=== PATIENT | female | born 1960 | race American Indian/Alaskan Native ===

== ENCOUNTER 2017-06-05 12:16 | Inpatient (IN) | payer MEDICAID ==
--- NOTE | 2017-06-05 20:35 | History and Physical Report ---
History of Present Illness Date of examination: 06/05/17 Date of admission: 06/05/17 14:01 Chief complaint: CC Jarred per her [employer] Manager History of present illness: 57 y/o female ent for JARRED by Dr Jiang as ARF/JARRED.Bun/cr in office 52/1.94 which has deteriorated from 24/06 from 4 months prior. Also c/o fatigue and SOB. No exacerbating or relieving factors Past History Past Medical History: hypertension Social history: lives with family, smoking (Former smoker), full code Family history: hypertension Medications and Allergies Allergies Allergy/AdvReac Type Severity Reaction Status Date / Time ibuprofen Allergy Swelling Unverified 06/05/17 14:02 lisinopril Allergy Swelling Unverified 06/05/17 14:02 Home Medications Medication Instructions Recorded Confirmed Last Taken Type Aspirin [Aspirin BABY CHEW TAB] 81 mg PO QDAY 06/05/17 06/05/17 06/04/17 10:00 History AtorvaSTATin [Lipitor] 40 mg PO QHS 06/05/17 06/05/17 06/04/17 20:00 History Cetirizine HCl [Zyrtec] 10 mg PO DAILY 06/05/17 06/05/17 06/04/17 10:00 History Cholecalciferol (Vitamin D3) 2,000 units PO DAILY 06/05/17 06/05/17 06/04/17 10: 00 History [Vitamin D3] Folic Acid [Folvite] 1 mg PO QDAY 06/05/17 06/05/17 06/04/17 10:00 History Furosemide [Lasix TAB] 40 mg PO BID 06/05/17 06/05/17 06/04/17 20:00 History Levothyroxine [Synthroid] 75 mcg PO QAM 06/05/17 06/05/17 06/04/17 10:00 History Metoprolol [Lopressor] 25 mg PO BID 06/05/17 06/05/17 06/04/17 20:00 History [place]-3 Fatty Acids/Fish Oil [Eql 1,000 mg PO DAILY 06/05/17 06/05/17 05/28/17 10:00 History [place]-3 Fish Oil 1,000 mg] Pantoprazole [Protonix] 40 mg PO QDAY 06/05/17 06/05/17 06/04/17 10:00 History Potassium Chloride [K-Dur] 20 meq PO QDAY 06/05/17 06/05/17 06/04/17 10:00 History Spironolactone [Aldactone] 25 mg PO QDAY 06/05/17 06/05/17 06/04/17 10:00 History Ubidecarenone [Co Q-10] 200 mg PO DAILY 06/05/17 06/05/17 06/04/17 10:00 History Warfarin [Coumadin] 5 mg PO QDAY 06/05/17 06/05/17 Unknown History Warfarin [Coumadin] 7.5 mg PO QDAY 06/05/17 06/05/17 Unknown History traZODone [Desyrel] 50 mg PO QHS 06/05/17 06/05/17 06/04/17 20:00 History Active Meds: Active Medications Influenza Virus Vaccine Quadrival (Fluarix Quad 4273-9795(36 Mos+) 0.5 ml IM .ONCE ONE Stop: 06/06/17 12:01 Pneumococcal Polyvalent Vaccine (Pneumovax 23) 0.5 ml IM .ONCE ONE Stop: 06/06/17 12:01 Review of Systems All systems: negative Constitutional: fatigue, weakness, no weight loss, no weight gain, no fever, no chills Ears, nose, mouth and throat: no hoarseness, no sore throat, no swelling in mouth Breasts: deferred Cardiovascular: no chest pain, no orthopnea, no palpitations, no rapid/ irregular heart beat Respiratory: no cough, no cough with sputum, no excessive sputum, no hemoptysis Gastrointestinal: no abdominal pain, no nausea, no vomiting, no diarrhea, no constipation Genitourinary Female: no dysuria, no urinary frequency, no urgency Rectal: no pain Musculoskeletal: no neck stiffness, no neck pain, no shooting arm pain, no arm numbness/tingling Integumentary: no rash, no pruritis, no redness, no sores Neurological: no head injury, no transient paralysis, no paralysis, no weakness , no seizures, no syncope Psychiatric: no anxiety, no memory loss, no change in sleep habits, no sleep disturbances Endocrine: no cold intolerance, no heat intolerance, no polyphagia, no excessive thirst Hematologic/Lymphatic: no easy bruising, no easy bleeding Allergic/Immunologic: no urticaria, no allergic rhinitis, no wheezing Exam - Constitutional Vitals: Temp Pulse Resp BP Pulse Ox 98.3 F 87 16 131/80 99 06/05/17 14:51 06/05/17 14:51 06/05/17 14:51 06/05/17 14:51 06/05/17 14:51 General appearance: Present: no acute distress, well-nourished - EENT Eyes: Present: PERRL ENT: hearing intact, clear oral mucosa - Neck Neck: Present: supple, normal ROM - Respiratory Respiratory effort: normal Respiratory: bilateral: CTA - Cardiovascular Heart rate: 70 Rhythm: regular Heart Sounds: Present: S1 & S2. Absent: rub, click - Extremities Extremities: no ischemia, pulses intact, pulses symmetrical, No edema Peripheral Pulses: within normal limits - Abdominal General gastrointestinal: Present: soft, non-tender, non-distended, normal bowel sounds Female genitourinary: Present: normal - Rectal Rectal Exam: deferred - Integumentary Integumentary: Present: clear, warm, dry - Musculoskeletal Musculoskeletal: gait normal, strength equal bilaterally - Psychiatric Psychiatric: appropriate mood/affect, intact judgment & insight - Neurologic Neurologic: CNII-XII intact, moves all extremities - Allied Health Allied health notes reviewed: nursing, case management Results - Labs CBC & Chem 7: 06/06/17 05:50 06/06/17 05:50 Assessment and Plan Advance Directives: Yes (FC) VTE prophylaxis?: Chemical Plan of care discussed with patient/family: Yes - Patient Problems (1) JARRED (acute kidney injury) Current Visit: Yes Status: Acute Plan to address problem: BUN/cr 52/1.94 in office.Now 22/1.0 Cot IV fluids Stop lasix (2) HTN (hypertension) Current Visit: Yes Status: Chronic Qualifiers: Hypertension type: essential hypertension Qualified Code(s): I10 - Essential (primary) hypertension Plan to address problem: Cont Metoprolol and Aldactone (3) CAD (coronary artery disease) Current Visit: Yes Status: Chronic Qualifiers: Coronary Disease-Associated Artery/Lesion type: [place] artery Associated angina: without angina Plan to address problem: On ASA and coumadin (4) Hypothyroidism (acquired) Current Visit: Yes Status: Chronic Plan to address problem: TSH high -16.11 Will increase Synthyroid from 75 mcg to 112 mcg (5) HLD (hyperlipidemia) Current Visit: Yes Status: Chronic Qualifiers: Hyperlipidemia type: mixed hyperlipidemia Qualified Code(s): E78.2 - Mixed hyperlipidemia Plan to address problem: Cont statins (6) Valvular heart disease Current Visit: Yes Status: Chronic Plan to address problem: On coumadin=Therapeutic (7) DVT prophylaxis Current Visit: Yes Status: Acute Plan to address problem: Coumadin therapeutic
[2017-06-05 21:44] LABS: INR 2.11 (0.87-1.13)
[2017-06-05] MEDS ORDERED: LASIX PO SCH (22:00)
[2017-06-05] MEDS: FOLVITE PO SCH (22:25)
[2017-06-05] MEDS: LOPRESSOR PO SCH (22:26)
[2017-06-05] MEDS: BABY ASPIRIN PO SCH (22:26)
[2017-06-05] MEDS: DESYREL PO SCH (22:27)
[2017-06-05] MEDS: K-DUR PO SCH (22:27)
[2017-06-05] MEDS: PROTONIX PO SCH (22:27)
[2017-06-05] MEDS: ALDACTONE PO SCH (22:37)
[2017-06-06 06:31] LABS: Basophils % (Auto) 1.1 % (0.0-1.8); Eosinophils # (Auto) 0.1 K/mm3 (0.0-0.4); Eosinophils % (Auto) 2.1 % (0.0-4.3); Lymphocytes # (Auto) 1.3 K/mm3 (1.2-5.4); Lymphocytes % (Auto) 29.4 % (13.4-35.0); Mean Corpuscular HGB Conc 31 % (30-34); Mean Corpuscular Volume 77 fl (79-97); Monocytes # (Auto) 0.3 K/mm3 (0.0-0.8); Monocytes % (Auto) 7.4 % (0.0-7.3); Platelet Count 192 K/mm3 (140-440); Red Blood Count 3.78 M/mm3 (3.65-5.03)
[2017-06-06 06:32] LABS: Mean Corpuscular Hemoglobin 24 pg (28-32)
[2017-06-06] MEDS ORDERED: SYNTHROID PO SCH ×3 (07:00→10:00)
[2017-06-06 07:17] LABS: BUN/Creatinine Ratio 22; Blood Urea Nitrogen 22 mg/dL (7-17); Hemolysis Index 3
[2017-06-06] MEDS ORDERED: FATTY ACIDS PO SCH (10:00)
[2017-06-06] MEDS ORDERED: LASIX PO SCH (10:00)
[2017-06-06] MEDS ORDERED: OMEGA PO SCH (10:00)
[2017-06-06] MEDS ORDERED: UBIDECARENONE 200 MG PO SCH (10:00)
[2017-06-06] MEDS ORDERED: CHOLECALCIFEROL 2000 UNIT PO SCH (10:00)
[2017-06-06] MEDS ORDERED: FISH OIL PO SCH (10:00)
[2017-06-06] MEDS ORDERED: NON-FORMULARY (Cetirizine Hcl [Zyrtec] 10 MG) PO SCH (10:00)
[2017-06-06] MEDS: FOLVITE PO SCH (10:11)
[2017-06-06] MEDS: ALDACTONE PO SCH (10:11)
[2017-06-06] MEDS: CLARITIN PO SCH (10:11)
[2017-06-06] MEDS: BABY ASPIRIN PO SCH (10:11)
[2017-06-06] MEDS: LOPRESSOR PO SCH ×2 (10:12→23:04)
[2017-06-06] MEDS: FISH OIL PO SCH (10:12)
[2017-06-06] MEDS: PROTONIX PO SCH (10:12)
[2017-06-06] MEDS: VITAMIN D3 PO SCH (10:12)
[2017-06-06] MEDS: K-DUR PO SCH (10:12)
--- NOTE | 2017-06-06 10:59 | Consultation ---
History of Present Illness - Reason for Consult Consult date: 06/06/17 acute renal failure, other (shortness of breath) - History of Present Illness 57-year-old lady who is known to me followed by our group in the office. Patient has a history of hypertension and her labs 4 months ago showed the BUN/ creatinine 17/1 mg/dL. She presented to the office yesterday with complaint of Shortness of breath which has been going on over a couple of months. She also complained of bilateral lower extremity swelling. She also complained of fatigue and could hardly walk more than 10 feet without giving out. She has to sit down due to being fatigued, short of breath and having palpitations. She saw her primary care physician and she increase furosemide to twice daily but her condition was not any better. Labs drawn prior to yesterday's visit showed BUN/creatinine had increased to 52/1.94 mg/dL. She was sent to the hospital for evaluation of the dyspnea and treatment of the acute kidney injury. Patient has not been using NSAIDS and has not been exposed to RadioContrast recently. Of note she is on furosemide 40 mg twice daily spironolactone 25 mg daily. Past History Past Medical History: arthritis, GERD, hypertension, other (Peptic ulcer disease with NSAID-induced gastric ulcer in the past) Past Surgical History: valve replacement (2014) Social history: lives with family (Aniyah with her sister), smoking (Former smoker quit in 2012), full code, other (worked at a [employer] for 26 years till 2011. She is now disabled) Family history: CAD (mother following a heart attack), cancer (father of throat cancer), hypertension Medications and Allergies Allergies Allergy/AdvReac Type Severity Reaction Status Date / Time ibuprofen Allergy Swelling Unverified 06/05/17 14:02 lisinopril Allergy Swelling Unverified 06/05/17 14:02 Home Medications Medication Instructions Recorded Confirmed Last Taken Type Aspirin [Aspirin BABY CHEW TAB] 81 mg PO QDAY 06/05/17 06/05/17 06/04/17 10:00 History AtorvaSTATin [Lipitor] 40 mg PO QHS 06/05/17 06/05/17 06/04/17 20:00 History Cetirizine HCl [Zyrtec] 10 mg PO DAILY 06/05/17 06/05/17 06/04/17 10:00 History Cholecalciferol (Vitamin D3) 2,000 units PO DAILY 06/05/17 06/05/17 06/04/17 10: 00 History [Vitamin D3] Folic Acid [Folvite] 1 mg PO QDAY 06/05/17 06/05/17 06/04/17 10:00 History Furosemide [Lasix TAB] 40 mg PO BID 06/05/17 06/05/17 06/04/17 20:00 History Levothyroxine [Synthroid] 75 mcg PO QAM 06/05/17 06/05/17 06/04/17 10:00 History Metoprolol [Lopressor] 25 mg PO BID 06/05/17 06/05/17 06/04/17 20:00 History [place]-3 Fatty Acids/Fish Oil [Eql 1,000 mg PO DAILY 06/05/17 06/05/17 05/28/17 10:00 History [place]-3 Fish Oil 1,000 mg] Pantoprazole [Protonix] 40 mg PO QDAY 06/05/17 06/05/17 06/04/17 10:00 History Potassium Chloride [K-Dur] 20 meq PO QDAY 06/05/17 06/05/17 06/04/17 10:00 History Spironolactone [Aldactone] 25 mg PO QDAY 06/05/17 06/05/17 06/04/17 10:00 History Ubidecarenone [Co Q-10] 200 mg PO DAILY 06/05/17 06/05/17 06/04/17 10:00 History Warfarin [Coumadin] 5 mg PO QDAY 06/05/17 06/05/17 Unknown History Warfarin [Coumadin] 7.5 mg PO QDAY 06/05/17 06/05/17 Unknown History traZODone [Desyrel] 50 mg PO QHS 06/05/17 06/05/17 06/04/17 20:00 History Active Meds: Active Medications Aspirin (Baby Aspirin) 81 mg PO QDAY ON LICENSE OF [facility] Last Admin: 06/06/17 10:11 Dose: 81 mg Atorvastatin Calcium (Lipitor) 40 mg PO QHS ON LICENSE OF [facility] Last Admin: 06/05/17 22:25 Dose: 40 mg Cholecalciferol (Vitamin D3) 2,000 unit PO QDAY ON LICENSE OF [facility] Last Admin: 06/06/17 10:12 Dose: 2,000 unit Fish Oil (Fish Oil) 1,000 mg PO QDAY ON LICENSE OF [facility] Last Admin: 06/06/17 10:12 Dose: 1,000 mg Folic Acid (Folvite) 1 mg PO QDAY ON LICENSE OF [facility] Last Admin: 06/06/17 10:11 Dose: 1 mg Furosemide (Lasix) 40 mg PO QDAY ON LICENSE OF [facility] Last Admin: 06/06/17 10:12 Dose: 40 mg Influenza Virus Vaccine Quadrival (Fluarix Quad [id number](36 Mos+) 0.5 ml IM .ONCE ONE Stop: 06/06/17 12:01 Levothyroxine Sodium (Synthroid) 112 mcg PO DAILY@0600 ON LICENSE OF [facility] Loratadine (Claritin) 10 mg PO DAILY ON LICENSE OF [facility] Last Admin: 06/06/17 10:11 Dose: 10 mg Metoprolol Tartrate (Lopressor) 25 mg PO BID ON LICENSE OF [facility] Last Admin: 06/06/17 10:12 Dose: 25 mg Pantoprazole Sodium (Protonix) 40 mg PO QDAY ON LICENSE OF [facility] Last Admin: 06/06/17 10:12 Dose: 40 mg Pneumococcal Polyvalent Vaccine (Pneumovax 23) 0.5 ml IM .ONCE ONE Stop: 06/06/17 12:01 Potassium Chloride (K-Dur) 20 meq PO QDAY ON LICENSE OF [facility] Last Admin: 06/06/17 10:12 Dose: 20 meq Spironolactone (Aldactone) 25 mg PO QDAY ON LICENSE OF [facility] Last Admin: 06/06/17 10:11 Dose: 25 mg Trazodone HCl (Desyrel) 50 mg PO QHS ON LICENSE OF [facility] Last Admin: 06/05/17 22:27 Dose: 50 mg Warfarin Sodium (Coumadin) 5 mg PO QDAY@1700 ON LICENSE OF [facility] PRN Reason: Protocol Review of Systems All systems: negative (shortness of breath, fatigue, nocturia, cough, constipation, dizziness, cold intolerance, rest of 12 point review of systems negative) Exam - Vital Signs Vital signs: Vital Signs Temp Pulse Resp BP Pulse Ox 98.3 F 87 16 131/80 99 06/05/17 14:51 06/05/17 14:51 06/05/17 14:51 06/05/17 14:51 06/05/17 14:51 - Physical Exam Narrative exam: Morbidly obese middle-aged, comfortable female lying in bed in no acute distress HEENT: NCAT, pink oral mucous membrane Neck: Supple, no venous distention CVS: S1S2 RRR with no murmur, rub or gallop Chest: Clear to auscultation, good chest expansion Abdomen: Obese, soft, nontender, no organomegaly, bowel sounds are present Extremities: 1-2+ edema, no clubbing Skin warm and dry, pigmentary changes especially in her legs Neuro: Awake, alert no focal deficits Results - Lab Results 06/06/17 05:50 06/06/17 05:50 Most recent lab results Calcium 9.0 mg/dL (8.4-10.2) 06/06/17 05:50 Assessment and Plan - Patient Problems (1) Shortness of breath Current Visit: Yes Status: Acute Plan to address problem: IV diuretics. Check d-dimer and proBNP. If d-dimer is elevated, may need to consider VQ scan. (2) JOSIAS (acute kidney injury) Current Visit: Yes Status: Acute Plan to address problem: Kidney function has improved back to her baseline. Follow-up electrolytes and kidney function with diuretics (3) HTN (hypertension) Current Visit: Yes Status: Chronic Qualifiers: Hypertension type: essential hypertension Qualified Code(s): I10 - Essential (primary) hypertension Plan to address problem: Follow blood pressure on current medications (4) Hypothyroidism (acquired) Current Visit: Yes Status: Chronic Plan to address problem: Thyroid replacement hormone dose increased by her primary attending
--- NOTE | 2017-06-06 11:57 | Progress Note ---
Assessment and Plan Assessment and plan: Patient is a 57-year-old woman with a history of dyslipidemia, hypothyroidism, GERD, hypertension, CHF (she doesn't know function), bilateral pig tissue valve replacement (3 years ago) on anticoagulation ("i don't know why Dr. Ferris in [place], [place] put me on warfarin", but she admits to Jc) and chronic kidney disease stage 3 with baseline creatinine 1.0 about 4 months ago, directly admitted byDr. Rolle via request of splicer helper, Dr. Jiang because Cr increased to 1.9. This is patient's first hospitalization here at [facility] per EMR. per Dr. Jiang: "57-year-old lady who is known to me followed by our group in the office. Patient has a history of hypertension and her labs 4 months ago showed the BUN/creatinine 17/1 mg/dL. She presented to the office yesterday with complaint of Shortness of breath which has been going on over a couple of months. She also complained of bilateral lower extremity swelling. She also complained of fatigue and could hardly walk more than 10 feet without giving out. She has to sit down due to being fatigued, short of breath and having palpitations. She saw her primary care physician and she increase furosemide to twice daily but her condition was not any better. Labs drawn prior to yesterday's visit showed BUN/creatinine had increased to 52/1.94 mg/dL. She was sent to the hospital for evaluation of the dyspnea and treatment of the acute kidney injury. Patient has not been using NSAIDS and has not been exposed to RadioContrast recently. Of note she is on furosemide 40 mg twice daily spironolactone 25 mg daily." -Acute renal failure, vasomotor nephropathy which appears to be resolved most likely due to adding Lasix: Nephrology is following -Valve Replacement witth leg edema/sob: get ECHO -SOB, mostly likely a/c heart failure: i ordered pCXR, Dr. jiang ordered d- dimer -H/o Afib/aflutter on a/c, followed by Dr. Carreon in [place], [place]: continue Warfarin and adjust/monitor levels -Severe hypothyroidism, "I be forgetting to take thyroid pill...because I got so many pills": clinical mental health counselor on compliance and how it will affect the heart History Interval history: Patient was seen and examined. Follow-up on current diagnosis is shortness for fatigue. Overnight uneventful. Patient denies any chest pain,nausea/vomiting or severe headaches. Imaging, nursing note, chart, labs and old chart reviewed. Discussed with patient. Hospitalist Physical - Physical exam Narrative exam: GEN: WDWN, NAD, AWAKE, ALERT, ORIENTATEDx 3 HEENT: NCAT, EOMI, PERRL, OP Clear NECK: supple, no adenopathy, no thyromegaly, no JVD CVS/HEART: RRR, NORMAL S1S2, NO JVD, pulses present bilaterally CHEST/LUNGS: CTA B, Symmetrical chest expansion, good air entry bilaterally GI/Abdomen: soft, NTND, good bowel sounds, no guarding or rebound /Bladder: no suprapubic tenderness, no CVA or paraspinal tenderness EXT/Skin: pretibial edema MSK: FROM x 4 Neuro: CN 2-12 grossly intact, no new focal deficits Psych: calm - Constitutional Vitals: Temp Pulse Resp BP Pulse Ox 97.9 F 64 20 147/86 100 06/06/17 08:41 06/06/17 08:41 06/06/17 08:41 06/06/17 08:41 06/06/17 08:41 General appearance: Present: no acute distress, well-nourished Results - Labs CBC & Chem 7: 06/06/17 05:50 06/06/17 05:50 Labs: Laboratory Last Values WBC 4.4 K/mm3 (4.5-11.0) L 06/06/17 05:50 RBC 3.78 M/mm3 (3.65-5.03) 06/06/17 05:50 Hgb 9.0 gm/dl (10.1-14.3) L 06/06/17 05:50 Hct 29.0 % (30.3-42.9) L 06/06/17 05:50 MCV 77 fl (79-97) L 06/06/17 05:50 MCH 24 pg (28-32) L 06/06/17 05:50 MCHC 31 % (30-34) 06/06/17 05:50 RDW 19.0 % (13.2-15.2) H 06/06/17 05:50 Plt Count 192 K/mm3 (140-440) 06/06/17 05:50 Lymph % (Auto) 29.4 % (13.4-35.0) 06/06/17 05:50 [place] % (Auto) 7.4 % (0.0-7.3) H 06/06/17 05:50 Eos % (Auto) 2.1 % (0.0-4.3) 06/06/17 05:50 Baso % (Auto) 1.1 % (0.0-1.8) 06/06/17 05:50 Lymph # 1.3 K/mm3 (1.2-5.4) 06/06/17 05:50 [place] # 0.3 K/mm3 (0.0-0.8) 06/06/17 05:50 Eos # 0.1 K/mm3 (0.0-0.4) 06/06/17 05:50 Baso # 0.0 K/mm3 (0.0-0.1) 06/06/17 05:50 Seg Neutrophils % 60.0 % (40.0-70.0) 06/06/17 05:50 Seg Neutrophils # 2.6 K/mm3 (1.8-7.7) 06/06/17 05:50 PT 24.9 Sec. (12.2-14.9) H 06/05/17 20:58 INR 2.11 (0.87-1.13) H 06/05/17 20:58 Sodium 141 mmol/L (137-145) 06/06/17 05:50 Potassium 3.8 mmol/L (3.6-5.0) 06/06/17 05:50 Chloride 101.9 mmol/L (98-107) 06/06/17 05:50 Carbon Dioxide 22 mmol/L (22-30) 06/06/17 05:50 Anion Gap 21 mmol/L 06/06/17 05:50 BUN 22 mg/dL (7-17) H 06/06/17 05:50 Creatinine 1.0 mg/dL (0.7-1.2) 06/06/17 05:50 Estimated GFR > 60 ml/min 06/06/17 05:50 BUN/Creatinine Ratio 22 % 06/06/17 05:50 Glucose 87 mg/dL (65-100) 06/06/17 05:50 Calcium 9.0 mg/dL (8.4-10.2) 06/06/17 05:50 TSH 16.110 mlU/mL (0.270-4.200) H 06/06/17 05:50
[2017-06-06] MEDS ORDERED: PNEUMOVAX 23 IM ONE (12:00)
[2017-06-06] MEDS ORDERED: Fluarix Quad 2017-2018(36 MOS+ IM ONE (12:00)
--- NOTE | 2017-06-06 13:34 | XRay Report ---
CHEST TWO VIEWS: 06/05/17 14:01:00 CLINICAL: Shortness of breath. COMPARISON: None FINDINGS: Mild cardiomegaly. Redistribution of pulmonary blood flow to the upper lobes. The lungs are normally expanded and clear. No pleural effusion.Median sternotomy wires. Large osteophytes of the thoracic spine. IMPRESSION: Cardiomegaly and pulmonary venous hypertension status post CABG.No pulmonary edema.
[2017-06-06 16:18] LABS: INR 1.83 (0.87-1.13)
[2017-06-06] MEDS: SYNTHROID PO SCH (18:11)
[2017-06-06] MEDS: LASIX IV SCH (18:13)
[2017-06-06] MEDS: COUMADIN PO SCH (18:14)
[2017-06-06] MEDS: DESYREL PO SCH (21:50)
[2017-06-07] MEDS ORDERED: NACL ONE (00:49)
--- NOTE | 2017-06-07 01:37 | Cat Scan Report ---
FINAL REPORT PROCEDURE: CT ANGIO CHEST TECHNIQUE: Computerized tomographic angiography of the chest was performed after the IV injection of iodinated nonionic contrast including image processing. The image data was postprocessed using 2-dimensional multiplanar reformatted (MPR) and 3-dimensional (MIP and/or volume rendered) techniques. HISTORY: PE protocol COMPARISON: No prior studies are available for comparison. FINDINGS: Heart and pericardium: Normal. Thoracic aorta: There is calcified plaque in the thoracic aorta. There is no aneurysm or dissection.. Pulmonary vasculature: There is no pulmonary embolism.. Lymph nodes: No enlarged thoracic lymph nodes. Lungs: There is suboptimal inspiration. There is mild pulmonary edema at the lung bases. There is no airspace consolidation.. Pleural space: There is a small right pleural effusion. There is no pneumothorax.. Musculoskeletal structures: No significant abnormality. Upper abdominal structures: No significant abnormality. IMPRESSION: The heart size is normal. There is calcified plaque in the thoracic aorta. There is no aneurysm or dissection.. There is no pulmonary embolism.. There is suboptimal inspiration. There is mild pulmonary edema at the lung bases. There is no airspace consolidation.. There is a small right pleural effusion. There is no pneumothorax..
[2017-06-07] MEDS: SYNTHROID PO SCH (06:55)
[2017-06-07 07:34] LABS: Hemoglobin 9.2 gm/dl (10.1-14.3); Mean Corpuscular HGB Conc 31 % (30-34); Mean Corpuscular Volume 76 fl (79-97); Platelet Count 185 K/mm3 (140-440); Red Blood Count 3.94 M/mm3 (3.65-5.03)
[2017-06-07 07:38] LABS: Mean Corpuscular Hemoglobin 23 pg (28-32)
[2017-06-07 07:44] LABS: Chol/HDL Ratio 3.4 %; Magnesium 1.9 mg/dL (1.7-2.3)
[2017-06-07 10:28] VITALS: BP 132/76
[2017-06-07] MEDS: ALDACTONE PO SCH (10:53)
[2017-06-07] MEDS: K-DUR PO SCH (10:54)
[2017-06-07] MEDS: CLARITIN PO SCH (10:54)
[2017-06-07] MEDS: BABY ASPIRIN PO SCH (10:54)
[2017-06-07] MEDS: FOLVITE PO SCH (10:54)
[2017-06-07] MEDS: FISH OIL PO SCH (10:54)
[2017-06-07] MEDS: VITAMIN D3 PO SCH (10:55)
[2017-06-07] MEDS: LASIX IV SCH (10:55)
[2017-06-07] MEDS: LOPRESSOR PO SCH (10:55)
[2017-06-07] MEDS: PROTONIX PO SCH (10:55)
--- NOTE | 2017-06-07 16:32 | Discharge Summary ---
Providers - Providers Date of Admission: 06/05/17 14:01 Date of discharge: 06/07/17 Attending physician: ASUNCION RUIZ 06/05/17 12:18 Consult to Physician [CONS] Routine Consulting Provider: BUZZ JIANG Reason For Exam: ACUTE KIDNEY INJURY Place consult to:: DR. JIANG Notified:: y Phone number called:: [phone] Was contact made?: Yes If yes, spoke with:: PATRICK Time called:: 12:19 Primary care physician: DAKOTA CONNELLY Hospitalization Condition: Stable Hospital course: Patient is a 57-year-old woman with a history of dyslipidemia, hypothyroidism, GERD, hypertension, CHF (she doesn't know function), bilateral pig tissue valve replacement (3 years ago) on anticoagulation ("i don't know why Dr. Ferris in [place], [place] put me on warfarin", but she admits to Jc) and chronic kidney disease stage 3 with baseline creatinine 1.0 about 4 months ago, directly admitted byDr. Rolle via request of security assistant, Dr. Jiang because Cr increased to 1.9. This is patient's first hospitalization here at [facility] per EMR. per Dr. Jiang: "57-year-old lady who is known to me followed by our group in the office. Patient has a history of hypertension and her labs 4 months ago showed the BUN/creatinine 17/1 mg/dL. She presented to the office yesterday with complaint of Shortness of breath which has been going on over a couple of months. She also complained of bilateral lower extremity swelling. She also complained of fatigue and could hardly walk more than 10 feet without giving out. She has to sit down due to being fatigued, short of breath and having palpitations. She saw her primary care physician and she increase furosemide to twice daily but her condition was not any better. Labs drawn prior to yesterday's visit showed BUN/creatinine had increased to 52/1.94 mg/dL. She was sent to the hospital for evaluation of the dyspnea and treatment of the acute kidney injury. Patient has not been using NSAIDS and has not been exposed to RadioContrast recently. Of note she is on furosemide 40 mg twice daily spironolactone 25 mg daily." -Acute renal failure, vasomotor nephropathy which appears to be resolved most likely due to adding Lasix: Nephrology is following -Valve Replacement witth leg edema/sob: get ECHO -SOB, mostly likely a/c heart failure: i ordered pCXR, Dr. jiang ordered d- dimer==>positive, but neg cta chest for PE -H/o Afib/aflutter on a/c, followed by Dr. Carreon in [place], [place]: continue Warfarin and adjust/monitor levels -Severe hypothyroidism, "I be forgetting to take thyroid pill...because I got so many pills": summer camp counselor on compliance and how it will affect the heart Echo still pending, patient to follow this up with Dr. Jiang. Disposition: DC-01 TO HOME OR SELFCARE Time spent for discharge: 35 minutes Core Measure Documentation - Palliative Care Palliative Care/ Comfort Measures: Not Applicable - Core Measures Any of the following diagnoses?: none - VTE Discharge Requirements Deep Vein Thrombosis/Pulmonary Embolism Present on Admission: No Has pt received <5 days of overlap therapy or INR<2.0: No Anticoagulant overlap therapy prescribed at discharge: No Contraindication No Overlap Therapy order at DC: Not Indicated Exam - Physical Exam Narrative exam: GEN: WDWN, NAD, AWAKE, ALERT, ORIENTATEDx 3 HEENT: NCAT, EOMI, PERRL, OP Clear NECK: supple, no adenopathy, no thyromegaly, no JVD CVS/HEART: RRR, NORMAL S1S2, NO JVD, pulses present bilaterally CHEST/LUNGS: CTA B, Symmetrical chest expansion, good air entry bilaterally GI/Abdomen: soft, NTND, good bowel sounds, no guarding or rebound /Bladder: no suprapubic tenderness, no CVA or paraspinal tenderness EXT/Skin: pretibial edema MSK: FROM x 4 Neuro: CN 2-12 grossly intact, no new focal deficits Psych: calm - Constitutional Vitals: Temp Pulse Resp BP Pulse Ox 98.4 F 60 16 132/76 97 06/07/17 08:23 06/07/17 09:03 06/07/17 08:23 06/07/17 08:23 06/07/17 08:23 Plan Activity: other (no strenous activity until cleared by Dr. Jiang) Diet: renal Additional Instructions: Follow up Echocardiogram results with Dr. Jiang this week. Follow up with: BUZZ JIANG MD [Staff Physician] - 7 Days DAKOTA CONNELLY MD [Primary Care Provider] - 10 Days Prescriptions: Levothyroxine [Synthroid] 112 mcg PO DAILY@0600 #30 tablet
[2017-06-07] MEDS: COUMADIN PO SCH (18:53)
--- NOTE | 2017-06-12 10:14 | Query- Heart Failure ---
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 Questions asked do not imply a particular answer is desired or expected. We greatly appreciate your clarification on this issue. Clinical Documentation States: 57 year old female was admitted on 06/05/17 The discharge summary (Dr. bennett) states " Patient is a 57-year-old woman with a history of dyslipidemia, hypothyroidism, GERD, hypertension, CHF (she doesn't know function), bilateral pig tissue valve replacement (3 years ago) on anticoagulation Valve Replacement witth leg edema/sob: get ECHO -SOB, mostly likely a/c heart failure " Clinical Findings Show: BNP: 2228 If possible, Please Clarify if you mean: Acuity: [ ] Acute [ x] Acute on Chronic [ ] Chronic Type: [x ] Systolic Heart Failure [ ] Diastolic Heart Failure [ ] Combined Heart Failure [ ] Other: Present on Admission: [ x] Yes (Y) [ ] Clinically undeterminable (W) [ ] No (N) Please also document response in your Progress Notes and/or Discharge Summary and indicate if the condition was present on admission. ROED
== END 2017-06-07 20:30 | disposition home or self-care (01) | DRG 682 ==
LOC: 4A 12:16 → UNDOADMIN 12:16 → 4A 14:01
PROVIDERS: ADMIT Internal Medicine; ATTEND Internal Medicine
PROC: 3E0234Z Introduction of Serum, Toxoid and Vaccine into Muscle, Percutaneous Approach (ICD-10-PCS; principal; 2017-06-06)
DX: N17.0 Acute kidney failure with tubular necrosis (principal); I50.23 Acute on chronic systolic (congestive) heart failure; I13.0 Hypertensive heart and chronic kidney disease with heart failure and stage 1 through stage 4 chronic kidney disease, or unspecified chronic kidney disease; I38 Endocarditis, valve unspecified; I50.9 Heart failure, unspecified; E03.9 Hypothyroidism, unspecified; K21.9 Gastro-esophageal reflux disease without esophagitis; I48.91 Unspecified atrial fibrillation; N18.3 Chronic kidney disease, stage 3 (moderate); I25.10 Atherosclerotic heart disease of native coronary artery without angina pectoris; E55.9 Vitamin D deficiency, unspecified; M19.90 Unspecified osteoarthritis, unspecified site; Z95.1 Presence of aortocoronary bypass graft; Z23 Encounter for immunization; Z82.49 Family history of ischemic heart disease and other diseases of the circulatory system; Z79.82 Long term (current) use of aspirin; Z79.899 Other long term (current) drug therapy; Z87.11 Personal history of peptic ulcer disease; Z87.891 Personal history of nicotine dependence; Z80.8 Family history of malignant neoplasm of other organs or systems
CPT/HCPCS: 36415; 71020; 71275; 80048; 80061; 83735; 83880; 84443; 84484; 85025; 85027; 85379; 85610; 90686; 90732; 93005; 93010; 93306; A9270-GY; J1940; Q9967